=== PATIENT | female | born 1985 | race Caucasian/White ===

== ENCOUNTER → 2023-11-25 13:13 | Outpatient (BNVA) | payer BC, MEDICAID, SELFPAY | PROVIDERS: Visit Provider Nurse Practitioner Family | DX: Z13.6 Encounter for screening for cardiovascular disorders (principal); D50.9 Iron deficiency anemia, unspecified; R73.9 Hyperglycemia, unspecified; R00.2 Palpitations | CPT/HCPCS: 80053; 80061; 82607; 83036; 83550; 83735; 84443; 85025 ==

== ENCOUNTER 2024-03-16 10:02 | Outpatient (CLI) | payer BC, MEDICAID, SELFPAY ==
--- NOTE | 2024-03-16 10:00 | US_ITS ---
WS: [id number] ULTRASOUND BILATERAL BREAST, Limited HISTORY: Z80.3 - Family history of malignant neoplasm of breast COMPARISON: None available. TECHNIQUE: 2-D and Doppler. RIGHT breast: Ultrasound directed to the RIGHT breast at 12:00, 3:00, 6:00, 9:00 and around the areol a. No abnormality identified. LEFT breast: Ultrasound directed 12:00, 3:00, 9:00, 6:00 and areola. No abnormality identified. US/US breast BI limited* [id number] IMPRESSION: BI-RADS: 1-Negative FOLLOW-UP: See Report Negative bilateral breast ultrasound. No abnormalities are identified in the ar ea of pain.
== END 2024-03-16 10:03 | disposition home or self-care (01) ==
LOC: RAD 10:04
PROVIDERS: PCP Nurse Practitioner Family; Visit Provider Nurse Practitioner Family
DX: Z80.3 Family history of malignant neoplasm of breast (principal)
CPT/HCPCS: 76642

== ENCOUNTER → 2024-06-25 11:50 | Outpatient (BNVA) | payer BC, MEDICAID, SELFPAY | PROVIDERS: PCP Nurse Practitioner Family; Visit Provider Nurse Practitioner Family | DX: D50.9 Iron deficiency anemia, unspecified (principal); R73.9 Hyperglycemia, unspecified; R00.2 Palpitations | CPT/HCPCS: 80053; 80061; 82607; 82728; 83036; 83550; 83735; 84443; 85025 ==

== ENCOUNTER → 2024-07-07 16:35 | Outpatient (BNVA) | payer BC, MEDICAID, SELFPAY | PROVIDERS: PCP Nurse Practitioner Family; Visit Provider Nurse Practitioner Women's Health | DX: R30.0 Dysuria (principal) | CPT/HCPCS: 84315; 87086 ==

== ENCOUNTER → 2024-08-05 09:49 | Outpatient (BNVA) | payer BC, MEDICAID, SELFPAY | PROVIDERS: PCP Nurse Practitioner Family; Visit Provider Nurse Practitioner Women's Health | DX: R39.9 Unspecified symptoms and signs involving the genitourinary system (principal) | CPT/HCPCS: 81000 ==

== ENCOUNTER → 2024-11-04 09:00 | Outpatient (BNVA) | payer BC, MEDICAID, SELFPAY | PROVIDERS: PCP Nurse Practitioner Family; Visit Provider Nurse Practitioner Women's Health | DX: R10.2 Pelvic and perineal pain (principal) | CPT/HCPCS: 82670; 83001 ==

== ENCOUNTER → 2024-11-11 15:01 | Outpatient (BNVA) | payer BC, MEDICAID, SELFPAY | PROVIDERS: PCP Nurse Practitioner Family; Visit Provider Nurse Practitioner Women's Health | DX: R10.2 Pelvic and perineal pain (principal); N94.19 Other specified dyspareunia; N92.0 Excessive and frequent menstruation with regular cycle | CPT/HCPCS: 76830 ==

== ENCOUNTER 2024-11-16 14:32 | Observation (INO) | payer BC, MEDICAID, SELFPAY ==
[2024-11-16] VITALS (11 sets, daily range): BP systolic 104–118; BP diastolic 68–74; PULSE 76–101; RESP 16–17; TEMP 36.7–37.1; O2SAT 97–100; BMI 21.5; BMI 21.7
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
--- NOTE | 2024-11-16 15:13 | CTR_ITS ---
PROCEDURE INFORMATION: Exam: CT Abdomen And Pelvis With Contrast Exam date and time: 11/16/2024 4:56 PM Age: 29 years old Clinical indication: Abdominal pain; Localized; Right lower quadrant (rlq); Additional info: R lower abdominal/pelvic pain, recent pelvic US 5d ago; Normal TECHNIQUE: Imaging protocol: Computed tomography of the abdomen and pelvis with contrast. Radiation optimization: All CT scans at this facility use at least one of these dose optimization techniques: automated exposure control; mA and/or kV adjustment per patient size (includes targeted exams where dose is matched to clinical indication); or iterative reconstruction. Contrast material: OMNI 350; Contrast volume: 100 ml; Contrast route: INTRAVENOUS (IV); COMPARISON: US transvaginal [id number] 11/11/2024 3:09 PM RADIATION DOSE METRICS: Total DLP (mGy-cm): 380.13 FINDINGS: Lungs: Subsegmental bibasilar atelectasis. The visualized lung bases are otherwise grossly clear. Diaphragm: No evidence of diaphragmatic defect. Liver: Scattered hepatic cysts. Gallbladder and biliary ducts: Unremarkable. No intra-hepatic or extra-hepatic biliary dilatation. Pancreas: Unremarkable. Spleen: Unremarkable. Adrenal glands: Unremarkable. Kidneys and ureters: No renal parenchymal abnormality. No hydronephrosis or ureteral stone. Stomach and bowel: No evidence of bowel obstruction. Appendix: The appendix is inflamed measuring approximately 13 cm in diameter (for example, images 30-32 of series 6). Questionable appendicolith in the tip of the appendix. Intraperitoneal space: No evidence of free air or fluid collection. Vasculature: No aneurysmal dilatation or dissection of the abdominal aorta. The celiac trunk, SMA and PREETI are grossly patent. No evidence of IVC thrombus. The portal vein, SMV and splenic veins are grossly patent. Lymph nodes: No adenopathy. Urinary bladder: Grossly unremarkable. Reproductive: Grossly unremarkable. Bones/joints: No evidence of acute fracture or aggressive osseous lesion. Soft tissues: No evidence of fluid collection or hematoma in the superficial soft tissues. CT/CT abdomen pelvis w con* [id number] IMPRESSION: 1. Acute appendicitis. No evidence of perforation or fluid collection.
[2024-11-16 15:25] LABS: Bilirubin Urine Negative (Negative); Blood Urine Negative (Negative); Glucose Urine UA Negative (Normal); Ketones Urine 1+ (Negative); Leukocyte Esterase Urine 1+ (Negative); Nitrate Urine Negative (Negative); Protein Urine Negative (Negative); Specific Gravity, Urine 1.007 (1.005-1.030); Urine Appearance Clear (CLEAR); Urine Color Yellow (Yellow); pH Urine 6.5 (5-7)
[2024-11-16 15:31] LABS: Add Urine Microscopic? YES; Bacteria Urine None Seen /hpf; Squamous Epithelial Cell Urine 0-5 /hpf (0-5); WBC Urine 0-5 /hpf (0-5)
[2024-11-16 15:43] LABS: Basophils % 0.6 %; Eosinophils % 0.3 %; Hematocrit 36.4 % (36-47); Lymphocytes # 0.8 10^3/uL (0.8-4.8); Mean Corpuscular HGB Conc 34.1 g/dL (30-55); Mean Corpuscular Hemoglobin 30.4 pg (27-33); Mean Corpuscular Volume 89.2 fl (85-98); Mean Platelet Volume 11.2 fL (7.4-10.4); Monocytes # 0.5 10^3/uL (0.2-0.9); Monocytes % 7.1 %; Neutrophils # 5.17 10^3/uL (1.8-7.7); Neutrophils % 79.7 %; Nucleated Red Blood Cells % 0 %; Platelet Count 147 10^3/cmm (157-399); Red Blood Count 4.08 10^6/uL (3.85-5.65); Red Cell Distribution Width 12.5 % (12.1-15.1); White Blood Count 6.49 10^3/uL (3.29-11.43)
[2024-11-16 15:44] LABS: Add Urine Culture? No
[2024-11-16 16:01] LABS: HCG, Serum Qual Negative (Negative)
[2024-11-16 16:09] LABS: Alanine Aminotransferase 10 U/L (0-33); Albumin Level 4.1 g/dL (3.5-5.2); Alkaline Phosphatase 54 U/L (35-105); Anion Gap 15.9 (5-19); Aspartate Amino Transferase 14 U/L (0-32); Blood Urea Nitrogen 10 mg/dL (6-20); Calcium 8.9 mg/dL (8.5-10.5); Carbon Dioxide 22 mmol/L (22-29); Chloride 103 mmol/L (98-107); Creatinine Clr Calc Pharmacy 149.2032; Globulin 2.7 g/dL (1.3-4.6); Glomerular Filtration Rate 118.2 mL/min (90-130); Glucose 94 mg/dL (65-115); Lipase 80 U/L (13-60); Osmolality Calculated 283 mOsm/kg (285-295); Potassium 3.9 mmol/L (3.5-5.1); Sodium 137 mmol/L (136-145); Total Bilirubin 0.3 mg/dL (0.15-1.2); Total Protein 6.8 g/dL (6.6-8.7)
[2024-11-16] MEDS: iohexol 350 mg/mL 500 mL Btl (per mL) IV (17:01)
[2024-11-16] MEDS: piperacillin-tazobactam 3.375 GM in sodium chloride 0.9% (plus) 50 ML IV (18:32)
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
[2024-11-16] MEDS: sodium chloride 0.9% 1,000 ML 100 ML IV (20:40)
[2024-11-17] VITALS (14 sets, daily range): BP systolic 91–117; BP diastolic 55–75; PULSE 70–91; RESP 8–20; TEMP 36.3–36.8; O2SAT 97–100
[2024-11-17] MEDS: piperacillin-tazobactam 3.375 GM in sodium chloride 0.9% (plus) 50 ML IV ×2 (00:01→05:57)
[2024-11-17] MEDS: sodium chloride 0.9% 1,000 ML 100 ML IV (05:57)
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
[2024-11-17] MEDS: sodium chloride 0.9% 1,000 ML 30 ML IV (07:53)
--- NOTE | 2024-11-17 08:08 | P.PN_ITS ---
Subjective 2 Subjective: Right lower quadrant pain persistent Vitals/I&O/Wt Last Vital Signs Temp 98.0 F 11/17/24 07:37 Pulse 91 11/17/24 07:37 Resp 16 11/17/24 07:37 BP 107/62 11/17/24 07:37 Pulse Ox 100 11/17/24 07:37 O2 Del Method Room Air 11/17/24 07:37 11/16/24 11/17/24 11/17/24 22:59 06:59 14:59 Intake Total 410 / 410 1323.333 / 1733.333 Balance 410 / 410 1323.333 / 1733.333 Weight last 48 hrs Weight 152 lb 4 oz Weight 151 lb Weight 150 lb Physical Exam 2 Narrative: Chest: Unlabored breathing room air. No lymphadenopathy. Heart: Regular rate and rhythm. Abdomen: Soft, tender right lower quadrant, nondistended. No masses or lymphadenopathy. Data 11/16/24 15:22 11/16/24 15:22 Micro: Microbiology 11/16/24 19:30 Blood Culture - Preliminary Blood SPECIMEN COLLECTED 11/16/24 19:28 Blood Culture - Preliminary Blood SPECIMEN COLLECTED A&P Assessment and plan (1) Acute appendicitis: Qualifiers: Acute appendicitis type: with localized peritonitis Appendicitis abscess presence: without abscess Appendicitis gangrene presence: without gangrene Appendicitis perforation presence: without perforation Qualified Code(s): K35.30 - Acute appendicitis with localized peritonitis, without perforation or gangrene Plan 29-year-old female presenting with acute uncomplicated appendicitis. Discussed risk and benefits and patient agrees to proceed with laparoscopic appendectomy possible open. PDMP PDMP Reviewed: Not Reviewed Attestations 2 Medical Necessity Statement*: IV fluids, IV antibiotics Coding Level of Care Code 01534 Diagnoses Acute appendicitis K35.30 Acute appendicitis type: with localized peritonitis Appendicitis abscess presence: without abscess Appendicitis gangrene presence: without gangrene Appendicitis perforation presence: without perforation
[2024-11-17] MEDS: ceFAZolin 2,000 mg SDV 2000 MG IVP (08:52)
[2024-11-17] MEDS: BUPivacaine 0.25% INJ 30 mL INJECTION (09:18)
[2024-11-17] MEDS: lidocaine-epi 1% PF 1:200,000 30 mL SDV INJECTION (09:18)
--- NOTE | 2024-11-17 09:23 | PM.OP ---
Operative Report Date of procedure: November 17, 2024 Pre-op diagnosis: Acute uncomplicated appendicitis Post-op diagnosis: same Post-op findings: Acute uncomplicated appendicitis Procedure done: Laparoscopic appendectomy Implants: N/A Specimens removed/disposition: Appendix sent to pathology Pathology: Appendix sent to pathology Surgeon: Binh Thorpe MD Director Of Casework Department: N/A Anesthesia: General Estimated blood loss: 10 cc Complications: N/A Findings: Injected appendix no periappendiceal abscess. Staple line intact. Adequate hemostasis. Condition: stable Disposition: observation Brief History: 29-year-old female who presented with acute uncomplicated appendicitis. Discussed risk and benefits and patient agreed to proceed with laparoscopic appendectomy possible open. Procedure: After having a discussion about risks and benefits and obtaining consent, patient was brought to the OR. SCDs were functioning prior to intubation. Zosyn was given 45min prior to incision. General anesthesia was administered. Arms were tucked. A acevedo catheter was placed. The abdomen was prepped and draped in the usual sterile fashion. Insufflation was achieved using a Veress needle at Long's point (15mmHg). A 5mm port was placed at the umbilicus using an optical view port. Then a 5mm port was placed suprapubically, and a 12mm port was placed in the left lower quadrant. The abdomen was inspected and no injuries were noted. Patient was placed in Trendelenburg and the table was rotated left. Using atraumatic bowel graspers the small bowel was placed on the left side of the abdomen, revealing the cecum and inflammed appendix. The appendix was dissected off the pelvic side wall bluntly. The appendix was grasped and the mesoappendix was taken down using a Ligasure. The base of the appendix was found to be intact. I proceeded to staple off the appendix at its base using a laparoscopic stapler with a blue load. The appendix was then retrieved using an endocatch bag. The staple line on the cecum was inspected, and found to be intact. The abdomen was desufflated and skin was closed using 4-0 monocryl and surgical glue. Acevedo was removed at the end of the case. The patient woke up from anesthesia and was transferred to PACU without any complications
--- NOTE | 2024-11-17 09:33 | PC.CHAP ---
Pastoral Care Encounter/Spiritual Assessment Type of Contact [] Declined foreign food specialty cook visit [] Patient/Family/Request visit [] Outpatient visit [] Follow-up visit [] Physician referral [] Code/Alert [] Routine visit [] Staff referral [] Actively dying [] Patient sleeping [] Family support [] [x] Out of room [] Palliative care [] [] Receiving care in room [] Pre-surgical visit [] Trauma [] Long length of stay [] ICU visit [] Other: Relational/Emotional Strength [] Patient feels connected with others/family/visitors/staff [] Distress [] Loneliness/isolation [] Abandonment Spirituality of Patient [] Person of Natalia [] Attends Anglican of their Natalia [] Believes in Prayer [] Reads Bible or Faith materials [] There are Spiritual issues to be addressed Kitchen Cleaner Interventions [] Prayer [] Active listening [] Non-anxious presence [] Spiritual/emotional support [] Crisis/trauma care [] Spiritual counseling [] Bereavement support [] Provided bereavement packet [] Provided Bible/devotional materials [] Provided toy/stuffed animal, coloring book to patient or family member [] Provided Communion [] Anointing/[place] [] Salvation [] Completed spiritual assessment [] Other: Impact on Illness or Injury [] Angry [] Fearful [] Anxious [] Often cries [] Exhaustion [] Unable to work [] Unable to attend moravian [] Unable to walk/stand [] Unable to read [] Unable to drive [] Unable to eat/drink [] Unable to sleep [] Unable to be with family [] Patient intubated [] Other: Summary Time spent with patient
--- NOTE | 2024-11-17 10:34 | ANE.PACU2 ---
Inpatient post-anesthesia follow up: Airway intact: Yes Vital signs: Temperature 98.1 F Pulse Rate 82 Respiratory Rate 18 Blood Pressure 105/69 Pulse Oximetry 99 Oxygen Delivery Me thod Room Air Oxygen Flow Rate 8 Fraction of Inspir ed Oxygen Hydration adequate: Yes Nausea and vomiting: No Pain level: 1 Mental status: Baseline
--- NOTE | 2024-11-17 10:45 | PC.NURSE ---
1038 - pt accepted into room 267 with Yadi RN at side - IV remains patent - abd soft with dermabond intact and pt in no distress upon this nurse exiting care - pt verbal to nurse - 104/70 - pulse 84 - 02 100% RA with temp at 98.1
--- NOTE | 2024-11-18 11:37 | PM.PN ---
Subjective Subjective: Status post lap appendectomy. Pain under control. Cleared for discharge. Vitals/I&O/Wt Last Vital Signs Temp 98.1 F 11/17/24 13:53 Pulse 82 11/17/24 13:53 Resp 18 11/17/24 13:53 BP 105/69 11/17/24 13:53 Pulse Ox 99 11/17/24 13:53 O2 Del Method Room Air 11/17/24 10:30 O2 Flow Rate 8 11/17/24 09:55 Weight last 48 hrs Weight 152 lb 4 oz Weight 151 lb Weight 150 lb Physical Exam Narrative: Chest: Unlabored breathing room air. No lymphadenopathy. Heart: Regular rate and rhythm. Abdomen: Soft, nontender, nondistended. No masses or lymphadenopathy. Incisions clean dry intact Urinary Catheter Management: James: Cath Placed During This Visit: yes, but has since been removed by the nurse Urinary Catheter Date of Insertion: 11/17/24 Urinary Catheter Time of Insertion: 09:00 Date Urinary Catheter Removed: 11/17/24 Time Urinary Catheter Discontinued: 09:30 Data 11/16/24 15:22 11/16/24 15:22 Micro: Microbiology 11/16/24 19:30 Blood Culture - Preliminary Blood NEGATIVE TO DATE 11/16/24 19:28 Blood Culture - Preliminary Blood NEGATIVE TO DATE A&P Assessment and plan (1) Appendicitis: Plan 29-year-old female status post lap appendectomy. Cleared for discharge. PDMP PDMP Reviewed: Last Reviewed 11/17/24 10:29 EDT by Binh Thorpe MD Attestations Medical Necessity Statement*: IV antibiotics, IV fluids Coding Level of Care Code Acute Code for [facility] Fwd Diagnoses Appendicitis K37
== END 2024-11-17 13:50 | disposition home or self-care (01) ==
LOC: ER 18:22 → MEDSURG 19:35
PROVIDERS: Emergency Medicine; Admitting Provider Student in an Organized Health Care Education/Training Program; Emergency Provider Physician Assistant; PCP Nurse Practitioner Family; Visit Provider Student in an Organized Health Care Education/Training Program
PROC: 0DTJ4ZZ Resection of Appendix, Percutaneous Endoscopic Approach (ICD-10-PCS; CPT 44970; principal; 2024-11-17 10:20)
DX: K35.33 Acute appendicitis with perforation, localized peritonitis, and gangrene, with abscess (principal)
CPT/HCPCS: 44970; 36415; 51702; 74177; 80053; 81001; 83690; 84703; 85025; 87040; 88304; 96365; 99285; A4216; G0378; J0131; J0690; J1100; J1200; J1885; J2250; J2405; J2543; J2704; J3010; J3490; J7030; J9999

== ENCOUNTER → 2024-11-30 13:17 | Outpatient (BNVA) | payer BC, MEDICAID, SELFPAY | PROVIDERS: PCP Nurse Practitioner Family; Visit Provider Nurse Practitioner Family | DX: R53.83 Other fatigue (principal) | CPT/HCPCS: 84439; 84443 ==

== ENCOUNTER → 2024-12-14 09:15 | Outpatient (BNVA) | payer BC, MEDICAID, SELFPAY | PROVIDERS: PCP Nurse Practitioner Family; Visit Provider Nurse Practitioner Family | DX: R53.83 Other fatigue (principal) | CPT/HCPCS: 86376 ==

== ENCOUNTER → 2025-01-18 16:06 | Outpatient (BNVA) | payer BC, MEDICAID, SELFPAY | PROVIDERS: Visit Provider Registered Nurse Neonatal Intensive Care | DX: R39.9 Unspecified symptoms and signs involving the genitourinary system (principal) | CPT/HCPCS: 81000 ==

== ENCOUNTER → 2025-02-01 11:38 | Outpatient (BNVA) | payer BC, MEDICAID, SELFPAY | PROVIDERS: PCP Nurse Practitioner Family; Visit Provider Nurse Practitioner Family | DX: R30.0 Dysuria (principal) | CPT/HCPCS: 81000 ==

== ENCOUNTER → 2025-02-15 13:00 | Outpatient (BNVA) | payer BC, MEDICAID, SELFPAY | PROVIDERS: PCP Nurse Practitioner Family; Visit Provider Nurse Practitioner Family | DX: R39.9 Unspecified symptoms and signs involving the genitourinary system (principal); N89.8 Other specified noninflammatory disorders of vagina | CPT/HCPCS: 81000; 81513; 87481; 87491; 87591; 87661 ==

== ENCOUNTER 2025-02-17 09:46 | Outpatient (RCR) | payer BC, MEDICAID, SELFPAY | END 2025-02-21 23:59 | disposition home or self-care (01) | LOC: SPT 09:46 | PROVIDERS: PCP Nurse Practitioner Family; Visit Provider Nurse Practitioner Women's Health | DX: R10.2 Pelvic and perineal pain (principal) | CPT/HCPCS: 97161 ==

== ENCOUNTER 2025-02-22 05:00 | Outpatient (RCR) | payer BC, MEDICAID, SELFPAY | END 2025-03-24 23:59 | disposition home or self-care (01) | LOC: SPT 05:00 | PROVIDERS: PCP Nurse Practitioner Family; Visit Provider Nurse Practitioner Women's Health | DX: R10.2 Pelvic and perineal pain (principal) | CPT/HCPCS: 97110; 97530 ==

== ENCOUNTER 2025-03-25 05:00 | Outpatient (RCR) | payer BC, MEDICAID, SELFPAY | END 2025-04-24 23:59 | disposition home or self-care (01) | LOC: SPT 05:00 | PROVIDERS: PCP Nurse Practitioner Family; Visit Provider Nurse Practitioner Women's Health | DX: R10.2 Pelvic and perineal pain (principal) | CPT/HCPCS: 97110 ==

== ENCOUNTER 2025-04-25 05:00 | Outpatient (RCR) | payer BC, MEDICAID, SELFPAY | END 2025-05-24 23:59 | disposition home or self-care (01) | LOC: SPT 05:00 | PROVIDERS: PCP Nurse Practitioner Family; Visit Provider Nurse Practitioner Women's Health | DX: R10.2 Pelvic and perineal pain (principal) | CPT/HCPCS: 20560; 97110 ==

== ENCOUNTER 2025-05-25 05:00 | Outpatient (RCR) | payer BC, MEDICAID, SELFPAY | END 2025-06-24 23:59 | disposition home or self-care (01) | LOC: SPT 05:00 | PROVIDERS: PCP Nurse Practitioner Family; Visit Provider Nurse Practitioner Women's Health | DX: R10.20 Pelvic and perineal pain unspecified side (principal) | CPT/HCPCS: 20560; 97110 ==

== ENCOUNTER 2025-06-25 06:30 | Outpatient (RCR) | payer SELFPAY | END 2025-07-07 08:50 | disposition home or self-care (01) | LOC: SPT 06:30 | PROVIDERS: PCP Nurse Practitioner Family; Visit Provider Nurse Practitioner Women's Health | DX: R10.20 Pelvic and perineal pain unspecified side (principal) | CPT/HCPCS: 97110 ==

== ENCOUNTER → 2025-06-28 15:53 | Outpatient (BNVA) | payer BC, MEDICAID, SELFPAY | PROVIDERS: PCP Nurse Practitioner Family; Visit Provider Nurse Practitioner Women's Health | DX: Z12.4 Encounter for screening for malignant neoplasm of cervix (principal); Z11.3 Encounter for screening for infections with a predominantly sexual mode of transmission | CPT/HCPCS: 86592; 86705; 86706; 86709; 86803; 87340; 87624; 87806 ==